=== PATIENT | female | born 1950 | race Caucasian/White ===

== ENCOUNTER 2016-10-16 15:53 | Emergency (ER) | payer BC, MEDICARE ==
[2016-10-16] MEDS ORDERED: Lidocaine 2% PF * 5 ML VIAL INJ ONE (17:20)
[2016-10-16 18:24] VITALS: BP 145/61
--- NOTE | 2016-10-16 19:12 | UC ---
Laceration HPI - HPI Summary HPI Summary: RIGHT THUMB LACERATION 1030 AM ON [place]. - History Of Current Complaint Chief Complaint: UCLaceration Stated Complaint: THUMB LAC Time Seen by Provider: 10/16/16 17:05 Hx Obtained From: Patient Laceration Location: Finger Mechanism Of Injury: Sharp Trauma Onset/Duration: Sudden Onset, Lasting Hours, Still Present Severity: Mild Pain Intensity: 0 Pain Scale Used: 0-10 Numeric Related History: Dominant Hand Right - Allergies/Home Medications Allergies/Adverse Reactions: Allergies Allergy/AdvReac Type Severity Reaction Status Date / Time Fentanyl Allergy Severe SEVERE Verified 04/20/16 09:07 NAUSEA AND DIZZINESS X 5 DAYS AFTER GIVEN Propoxyphene Allergy Severe Dizziness Verified 04/20/16 09:07 [From Amy] PMH/Surg Hx/FS Hx/Imm Hx Previously Healthy: Yes - Surgical History Surgical History: Yes Surgery Procedure, Year, and Place: sinus surgury= 1999 2008, bilateral knee replacements,c-sections,d+c, hernia repair,tubal - Family History Known Family History: Negative: Blood Disorder - Social History Occupation: Employed Full-time Lives: With Family Alcohol Use: Rare Substance Use Type: None Smoking Status (MU): Never Smoked Tobacco - Immunization History Most Recent Influenza Vaccination: 2016 Most Recent Tetanus Shot: 2011 Most Recent Pneumonia Vaccination: 2016 Review of Systems Constitutional: Negative Skin: Other - LACERATION RIGHT THUMB Eyes: Negative ENT: Negative Respiratory: Negative Cardiovascular: Negative Gastrointestinal: Negative Genitourinary: Negative Motor: Negative Neurovascular: Negative Musculoskeletal: Negative Neurological: Negative Psychological: Negative All Other Systems Reviewed And Are Negative: Yes Physical Exam Triage Information Reviewed: Yes Appearance: Well-Appearing, No Pain Distress, Well-Nourished Vital Signs: Initial Vital Signs Temp 98 F 10/16/16 16:24 Pulse 62 10/16/16 16:24 Resp 15 10/16/16 16:24 BP 149/88 10/16/16 16:24 Pulse Ox 99 10/16/16 16:24 Vital Signs Reviewed: Yes Eye Exam: Normal ENT Exam: Normal ENT: Positive: Normal ENT inspection, TMs normal Dental Exam: Normal Neck exam: Normal Neck: Positive: Supple, Nontender Respiratory Exam: Normal Respiratory: Positive: Chest non-tender, Lungs clear, Normal breath sounds, No respiratory distress Cardiovascular Exam: Normal Cardiovascular: Positive: RRR, No Murmur Abdominal Exam: Normal Musculoskeletal Exam: Normal Musculoskeletal: Positive: Strength Intact, ROM Intact Neurological Exam: Normal Psychological Exam: Normal Skin: Positive: Other - LACERATION RIGHT THUMB Laceration Repair - Laceration Repair 1 Description: Linear Laceration Size After Repair: Length (cm) - 1.5, Width (mm) - 4, Depth (mm) - 5 Type Injection: Digital Anesthesia Used: 2.0% Lido Cleansing Completed Via Routine Prep: Yes Irrigation With Pressure Irrigation Device: Yes Closure Material: Sutures - 3 X 4-0 PROLENE Closure Method: Single Layer Suture Of: Skin, SQ Suture Type: Prolene Laceration Course/Dx - Differential Dx - Laceration/Wound Differental Diagnoses: Laceration Provider Diagnoses: LACERATION RIGHT THUMB WITH REPAIR Discharge - Discharge Plan Condition: Stable Disposition: HOME Patient Education Materials: Finger Laceration (ED) Referrals: Paula Stringer MD [Primary Care Provider] - Additional Instructions: HAVE SUTURES REMOVED IN TEN DAYS
== END 2016-10-16 18:28 | disposition home or self-care (01) ==
LOC: UCEAST 15:53
DX: S61.011A Laceration without foreign body of right thumb without damage to nail, initial encounter (principal); W26.8XXA Contact with other sharp object(s), not elsewhere classified, initial encounter; Y93.9 Activity, unspecified; Y92.9 Unspecified place or not applicable; Y99.9 Unspecified external cause status
CPT/HCPCS: 12001; 99211; G0463